=== PATIENT | male | born 1970 | race Caucasian/White ===

== ENCOUNTER → 2020-10-22 | Day surgery (SDC) | payer BC ==
[~2020-10-22] MED LIST: ECOTRIN81 MG PO; GABAPENTIN300 MG PO; LISINOPRIL20 MG PO; PROTONIX 40 MG40 M1 PO; ZOCOR10 MG PO; ZYLOPRIM100 MG PO
== END | disposition home or self-care (01) ==
LOC: OR 07:45
PROVIDERS: Anesthesiology Pain Medicine
PROC: 0JH70BZ Insertion of Single Array Stimulator Generator into Back Subcutaneous Tissue and Fascia, Open Approach (ICD-10-PCS; principal; 2020-10-22 09:00)
DX: M96.1 Postlaminectomy syndrome, not elsewhere classified (principal); I12.9 Hypertensive chronic kidney disease with stage 1 through stage 4 chronic kidney disease, or unspecified chronic kidney disease; N18.1 Chronic kidney disease, stage 1; E78.5 Hyperlipidemia, unspecified; M54.16 Radiculopathy, lumbar region; G89.29 Other chronic pain; M54.5 Low back pain; Z79.899 Other long term (current) drug therapy; Z79.891 Long term (current) use of opiate analgesic; Z20.822 Contact with and (suspected) exposure to COVID-19; Z79.1 Long term (current) use of non-steroidal anti-inflammatories (NSAID); Z79.82 Long term (current) use of aspirin; Z97.8 Presence of other specified devices
CPT/HCPCS: 72170; 76000; C1767; C1787; C1820; J0690; J1100; J2001; J2250; J2405; J2704; J3010; J7030; J7120

== ENCOUNTER → 2021-05-31 | Day surgery (SDC) | payer BC ==
[~2021-05-31] MED LIST changes: +AMLODIPINE BESYL5 MG PO; +CELEBREX200 MG PO
== END | disposition home or self-care (01) ==
LOC: OR 06:35
DX: Z12.11 Encounter for screening for malignant neoplasm of colon (principal); K29.70 Gastritis, unspecified, without bleeding; K21.9 Gastro-esophageal reflux disease without esophagitis; I10 Essential (primary) hypertension; E78.5 Hyperlipidemia, unspecified; G89.4 Chronic pain syndrome; M54.18 Radiculopathy, sacral and sacrococcygeal region; M96.1 Postlaminectomy syndrome, not elsewhere classified; Z79.1 Long term (current) use of non-steroidal anti-inflammatories (NSAID); Z79.899 Other long term (current) drug therapy; Z20.822 Contact with and (suspected) exposure to COVID-19
CPT/HCPCS: J2704; J7040

== ENCOUNTER → 2022-02-23 | Outpatient (CLI) | payer BC | LOC: KOH-I 12:23 | DX: M79.672 Pain in left foot (principal); M72.2 Plantar fascial fibromatosis; M19.072 Primary osteoarthritis, left ankle and foot | CPT/HCPCS: 73630 ==